=== PATIENT | female | born 1960 | race Caucasian/White ===

== ENCOUNTER 2019-04-07 10:27 | Emergency (ER) | payer OTHER ==
[~2019-04-07] VITALS: Ht 154.9 cm; Wt 83.6 kg
[2019-04-07 10:32] VITALS: BP 153/93
[2019-04-07] MEDS ORDERED: FLUORESCEIN OPTH STRIP 0.6 MG OP ONE (10:40)
--- NOTE | 2019-04-07 10:40 | NUR ---
PATIENT AMBULATED TO BED 9
--- NOTE | 2019-04-07 10:42 | NUR ---
DR. HILLIARD AT BEDSIDE EVALUATING PATIENT.
--- NOTE | 2019-04-07 10:43 | NUR ---
58 y female bib self c/o right eye pain & redness s/p her dog jumped on her right eye x 2 days. -n/v, denies fever, denies discharge, denies itching. pain 8/10 intermittent and sharp. vss at this time. pt alert and oriented. bed is down, locked, bed rail x 1, ermd to see pt. med hx: DM MED: METFORMIN
--- NOTE | 2019-04-07 10:43 | NUR ---
fluor strip at bedside for dr quezada
[2019-04-07 10:57] VITALS: BP 156/94
--- NOTE | 2019-04-07 10:57 | NUR ---
Patient discharged with v/s stable. Written and verbal after care instructions given and explained. Patient alert, oriented and verbalized understanding of instructions. Ambulatory with steady gait. All questions addressed prior to discharge. ID band removed. Patient advised to follow up with PMD. Rx of norco, motrin, erythromycin given. Patient educated on indication of medication including possible reaction and side effects. Opportunity to ask questions provided and answered.
== END 2019-04-07 10:57 | disposition home or self-care (01) ==
LOC: MED 10:27
DX: S05.02XA Injury of conjunctiva and corneal abrasion without foreign body, left eye, initial encounter (principal); E11.9 Type 2 diabetes mellitus without complications; I10 Essential (primary) hypertension; W54.8XXA Other contact with dog, initial encounter; Y93.89 Activity, other specified; Y92.89 Other specified places as the place of occurrence of the external cause; Y99.8 Other external cause status
CPT/HCPCS: 99283